=== PATIENT | female | born 1945 | race Caucasian/White ===

== ENCOUNTER 2019-01-20 18:40 | Emergency (ER) | payer OTHER ==
[~2019-01-20] VITALS: Ht 167.6 cm; Wt 77.1 kg
[~2019-01-20 18:40] MED LIST: NAPROXEN 500MG500 MG PO; NORCO 5-325 TA1 EACH PO; VALIUM5 MG PO
[2019-01-20] MEDS ORDERED: HYDROCODON-ACE1 EA11 PO (20:48)
[2019-01-20 20:51] VITALS: BP 167/98
== END 2019-01-20 20:56 | disposition home or self-care (01) ==
LOC: ER 18:40
DX: S52.514A Nondisplaced fracture of right radial styloid process, initial encounter for closed fracture (principal); E03.9 Hypothyroidism, unspecified; F32.9 Major depressive disorder, single episode, unspecified; Z98.51 Tubal ligation status; Z88.0 Allergy status to penicillin; Z88.2 Allergy status to sulfonamides; W18.39XA Other fall on same level, initial encounter; Y93.89 Activity, other specified; Y92.89 Other specified places as the place of occurrence of the external cause; Y99.8 Other external cause status

== ENCOUNTER 2020-04-25 03:30 | Inpatient (IN) | payer OTHER ==
[2020-04-25] VITALS (7 sets, daily range): BP systolic 111–149; BP diastolic 50–85
[~2020-04-25] VITALS: Ht 160 cm; Wt 86.2 kg
[~2020-04-25 03:30] MED LIST changes: +HYDROCODON-ACE1 EA11 PO
[2020-04-25] MEDS ORDERED: TRAMADOL 50 MG50 MG PO (03:39)
[2020-04-25 04:53] LABS: HEMATOCRIT 38.6 % (37.0-47.0); HEMOGLOBIN 12.7 gm/dL (12.0-15.0); MCH 30.1 pg (26.0-34.0); MCHC 32.8 g/dL (28.0-37.0); MCV 91.9 fL (80.0-100.0); RBC 4.2 mil/uL (4.20-5.00); RDW 14.2 % (10.5-14.5); WBC 8.6 thou/uL (4.0-11.0)
[2020-04-25 05:13] LABS: CALCIUM 10.1 mg/dL (8.5-10.1); CREATININE 0.8 mg/dL (0.6-1.0); POTASSIUM 3.3 mmol/L (3.5-5.1)
[2020-04-25 06:39] LABS: URINE BILIRUBIN NEGATIVE (Negative); URINE BLOOD NEGATIVE (Negative); URINE CLARITY CLEAR; URINE COLOR YELLOW; URINE GLUCOSE-RANDOM* NEGATIVE (Negative); URINE KETONES 2+ (Negative); URINE LEUKOCYTES-REFLEX TRACE (Negative); URINE PROTEIN (DIPSTICK) NEGATIVE (Negative); URINE SPECIFIC GRAVITY 1.025 (1.005-1.035); URINE UROBILINOGEN 0.2 E.U./dl (0.2-1.0)
[2020-04-25 06:40] LABS: URINE NITRITE-REFLEX POSITIVE (Negative)
[2020-04-25 06:54] LABS: CASTS None Seen /LPF (None Seen); SQUAMOUS 0-3 Few /LPF (0-3)
[2020-04-25 06:55] LABS: BACTERIA-REFLEX >30 Many /HPF (None Seen); CRYSTALS None Seen /LPF (None Seen); URINE RBC 0-2 Rare /HPF (0-2); URINE WBC-REFLEX 6-15 Few /HPF (0-5)
--- NOTE | 2020-04-25 13:42 | NUR ---
Case opened to follow for dc planning. Pt is &ox4 and indicates that she lives alone in a 3rd story apt. She has 32 steps to get in and out. She has one flight down to her mailbox and laundry area. She has a good friend that lives on that level who can help as needed. She normally drives and manages all of her IADLs, ADLs and gait with no assistive device. She fell last week on the steps and broke her left wrist which is casted. She has back pain then but was able to drive herself to her pcp office, dr. Emani Carroll as well as [facility]. Her back has continued to bother her with increased pain and decline in her functional status. She was dx with L4 comp fx and khypoplasty is planned for this afternoon. She is hoping she will be able to return home to her apt with support from her friend and HH at de. She is open to SNF if recommended by the care team. HH and SNF options for her [employer] plan discussed. She denies preference. HH referral being sent to [facility] for possible dc 1-2 days and SNF referral being sent to [facility] should she not be able to return directly home. Pt is in agreement with Plan A and Plan B pending therapy evals and her post procedure progress. Will follow.
--- NOTE | 2020-04-25 14:56 | NUR ---
FAXED REFERRAL TO [facility] THEY DO NOT ACCEPT PT'S INSURANCE SO THEY CANNOT ACCEPT. FAXED REFERRAL TO [facility] SPOKE WITH INTAKE THEY WILL HAVE TO RUN PT'S INSURANCE THEY ACCEPT SOME [employer] INS. ALSO FAXED REFERRAL TO [facility] FOR SKILLED STAY SPOKE WITH [facility] SHE RECEIVED REFERRAL AND WILL FOLLOW IF PT WILL NEED SKILLED AND SHE WILL ALSO NEED PT/OT NOTES. DP TO FOLLOW.
[2020-04-25] MEDS ORDERED: ALENDRONATE SOD70 MG PO (15:57)
[2020-04-25] MEDS ORDERED: LEVO-T75 MCG PO (15:57)
[2020-04-25] MEDS ORDERED: PROZAC20 M1 PO (15:58)
[2020-04-25] MEDS ORDERED: AMITRIPTYLINE H25 M3 PO (15:58)
[2020-04-25] MEDS ORDERED: SINGULAIR 10 MG10 MG PO (15:59)
[2020-04-25] MEDS ORDERED: NORVASC 2.5 MG2.5 M1 PO (15:59)
[2020-04-25] MEDS ORDERED: ARICEPT10 M1 PO (15:59)
[2020-04-25] MEDS ORDERED: PROTONIX40 M2 PO (16:00)
[2020-04-25] MEDS ORDERED: VITAMIN D325 MC1 PO (16:03)
[2020-04-25] MEDS ORDERED: SUPER THERAVIT1 EACH PO (16:12)
[2020-04-25] MEDS ORDERED: CALTRATE PLUS1 EACH PO (16:12)
--- NOTE | 2020-04-25 20:21 | NUR ---
Admitted patient from ER due to fall. A+Ox4. Admit/discharge nurse Mar did admission history, assessment and history; admission forms signed as well. On MS, not on telemetry; no complains and signs of chest pain, crushing sensation and heaviness. Assisted in ADLs. On nothing per orem- pt informed and aware. On room air. Vital signs stable. With urinary urgency- purewick in place; output measured and recorded accordingly. With SL at R AC- intact and flushing well. Pt went down for Kyphoplasty via stretcher; tolerated procedure well, back to room safely. Bedrest for 2 hours(until 4pm)- pt informed and aware. Patient complained of pain, no PRN pain meds- Dr Vuong paged, informed him re: consult; order for medication obtained- given as prescribed. Med rec done c/o pharmacist- Dr Vuong informed meds ready for review- will look into it- Night RN informed pt's meds to be reviewed by Dr Vuong. With cast on L hand- intact, pt able to move fingers, able to feel tactile stimulation, no swelling and bleeding noted. To continue monitoring patient.
--- NOTE | 2020-04-25 21:08 | NUR ---
PATIENT ADMITTED FROM ER WITH L4 BURST FRACTURE AND RIGHT LEG PARASTHESIA. PATIENT IS NPO FOR PROCEDURE KYPHOPLASTY THIS JAKE RAMIREZ. PATIENT MEG PAIN UNLESS SHE MOVES. PATIENT ALERT AND ORIENTED X 4, SHE STATES SHE CAN BE FORGETFUL. ADMISSION COMPLETED AND REPORT GIVEN TO NATALIE/RN.
--- NOTE | 2020-04-26 06:56 | NUR ---
Pt. rested quietly at intervals during the night when checked on during frequent rounds. She offers no complaints of pain. Bed alarm is on.
[2020-04-26 07:40] VITALS: BP 135/62
[2020-04-26 15:35] VITALS: BP 130/51
--- NOTE | 2020-04-26 16:24 | NUR ---
Assumed pt care this am, cast on the left wrist and hand present prior admission. 1 day post kyphopasty, pain managed with repositioning and medications. Was able to ambulate the halls with physical therapy. POC followed with no signs or distress noted. Diet and medications tolerated well.
[2020-04-26 19:30] VITALS: BP 131/68
--- NOTE | 2020-04-27 04:02 | NUR ---
Pt. rested quietly at short intervals during the night when checked on during frequent rounds. She offers no c/o pain upon assessment. Ambulates to the bathroom with standby assistance and she uses her walker. Bed alarm is on.
[2020-04-27 05:44] LABS: HEMATOCRIT 39.1 % (37.0-47.0); HEMOGLOBIN 12.7 gm/dL (12.0-15.0); MCH 30.3 pg (26.0-34.0); MCHC 32.5 g/dL (28.0-37.0); MCV 93.1 fL (80.0-100.0); RBC 4.2 mil/uL (4.20-5.00); RDW 14.5 % (10.5-14.5); WBC 10.6 thou/uL (4.0-11.0)
[2020-04-27 06:05] LABS: CALCIUM 9.2 mg/dL (8.5-10.1); CREATININE 0.8 mg/dL (0.6-1.0); POTASSIUM 3.6 mmol/L (3.5-5.1)
[2020-04-27 08:04] VITALS: BP 142/78
--- NOTE | 2020-04-27 12:07 | NUR ---
Pt is working with therapy and able to walk in her room and hallway. Attempted stairs today and able to do 5. Pain improved. [facility] for f/u in her apt and pt has a friend who can assist at dc. If the pt is dc ready over the weekend, unit staff to fax dc orders to [facility] at [phone] and call their oncall RN to confirm dc [phone].
[2020-04-27 15:04] VITALS: BP 139/626
[2020-04-27 18:52] VITALS: BP 135/56
--- NOTE | 2020-04-27 22:48 | NUR ---
PT ALERT AND ORIENTED X 4. AMB TO BR WITH STANDBY ASSIST X 1. RAC SALINE LOCK INTACT AND PATENT. CAST TO LEFT WRIST INTACT. FINGERS WARM, PINK, MOBILE. PT DENIES PAIN OR DISCOMFORT. PT AWAKE AT THIS TIME WATCHING TV.
[2020-04-28 07:16] VITALS: BP 163/96
[2020-04-28] MEDS ORDERED: HYDROCODON-ACE1 EAC7 PO (10:02)
[2020-04-28] MEDS ORDERED: CEFUROXIME500 MG PO (10:02)
--- NOTE | 2020-04-28 10:20 | NUR ---
According to the patient, Dr. Freeman stated that the patient would not be discharged until tomorrow or thursday. Dr. Ervin voiced that it would be ok with him if Dr. freeman wanted the patient to stay.
--- NOTE | 2020-04-28 10:21 | NUR ---
Called the answer service for Dr. Freeman, awaiting response.
--- NOTE | 2020-04-28 11:46 | NUR ---
Dr. Freeman, " It is ok with me." when the staff asked, " The patient said that you had told her that she would stay until tomorrow or the day after tomorrow."
--- NOTE | 2020-04-28 11:52 | NUR ---
Dr. Ervin agreed that the patient would not be discharged until tomorrow.
--- NOTE | 2020-04-28 12:11 | NUR ---
Patient will not be discharged today. Will pass it on to the next nurse that Discharge order and discharge summary will be faxed to [phone] (home care) on discharge.
--- NOTE | 2020-04-28 14:02 | NUR ---
Patient voiced of interest in a walker like she is having now.
--- NOTE | 2020-04-28 14:29 | NUR ---
Stretching Press Operator voiced that if the patient is medically stable, she should be discharged. Dr. Freeman paged about 10 minutes ago, no response.
--- NOTE | 2020-04-28 15:15 | NUR ---
Dr. Freeman paged for the second time about 30 minutes ago, no reponse; paged Dr. Lange, awaiting response.
[2020-04-28 15:43] VITALS: BP 124/57
--- NOTE | 2020-04-28 16:18 | NUR ---
Patient is going home with home care, waiting to confirm the fax number: [phone] before faxing.
--- NOTE | 2020-04-28 16:27 | NUR ---
Ms. Huggins from [facility] ( [phone]) claimed that she couldnot find the name of the patient. The staff reported that to Discharge field care manager Bhavna, asked the staff to fax the discharge paper to [phone] right now andMsGordon Huggins claimed that she would text somebody in [facility] about the patient.
--- NOTE | 2020-04-28 18:07 | NUR ---
Ms. Del Valle asked the staff fax discharge paper to [phone], fax done. According to Dr. Ervin, patient will have paper prescription of Hydrocodone-acetaminophen. The prescription of Ceftin has been sent to pharmacy. Patient has signed the discharge document. Patient agreed to leave tomorrow. Will pass this on to the night nurse.
--- NOTE | 2020-04-29 00:41 | NUR ---
PROGRESS PT A/OX4 VSS, UP WITH SBA AND WALKER GAIT STEADY. VOIDING QS REPORTS 3 LOOSE STOOLS FROM [employer] DURING DAY SHIFT. ALSO STATED THE STRESS OF ALMOST BEING DISCHARGED AT THE LAST MINUTE FLARED UP HER IBS. BANDAID TO LUMBAR SPINE INTACT NO REDNESS OR SWELLING NOTED AT SURGICAL SITE.DISCHARGE INSTRUCTIONS AND PRESCRIPTION ON FRONT OF CHART IN NURSE SPECIAL POLICE OFFICER.
[2020-04-29 09:52] VITALS: BP 149/50
--- NOTE | 2020-04-29 10:05 | NUR ---
DISCHARGE PAPERS REVIEWED WITH PATIENT SIGNED AND COPY IN CHART. IV ACSESS DCD. RX GIVEN TO PATIENT ANOTHER FOR ABT CALLED TO PATIENTS PHARMACY. ALL BELONGINGS PACKED AND TO BE SENT HOME WITH PATIENT.
[2020-04-29 11:12] VITALS: BP 149/50
[2020-04-30 13:00] VITALS: BP 149/50
--- NOTE | 2020-04-30 15:53 | NUR ---
WAS NOTIFIED BY [facility] THAT THEY CANNOT ACCEPT PT AFTER ALL DUE TO CAPACITY. FAXED REFERRALL TO [facility] SPOKE WITH CLARITA IN INTAKE THEY CAN ACCEPT PT AND WILL CALL TO ARRANGE VISITS.
== END 2020-04-29 11:00 | disposition home health service (06) | DRG 516 ==
LOC: ER 03:30 → 4W 09:41 → EROBS 09:41 → 4W 10:08
PROVIDERS: Emergency Medicine; Hospitalist; ADMIT Surgery; ATTEND Surgery
PROC: 0QU03JZ Supplement Lumbar Vertebra with Synthetic Substitute, Percutaneous Approach (ICD-10-PCS; principal; 2020-04-25)
PROC: 0QS03ZZ Reposition Lumbar Vertebra, Percutaneous Approach (ICD-10-PCS; principal; 2020-04-25)
DX: S32.041A Stable burst fracture of fourth lumbar vertebra, initial encounter for closed fracture (principal); N39.0 Urinary tract infection, site not specified; I10 Essential (primary) hypertension; F32.9 Major depressive disorder, single episode, unspecified; E03.9 Hypothyroidism, unspecified; R20.2 Paresthesia of skin; W10.8XXA Fall (on) (from) other stairs and steps, initial encounter; B96.1 Klebsiella pneumoniae [K. pneumoniae] as the cause of diseases classified elsewhere; Z79.899 Other long term (current) drug therapy; Z88.0 Allergy status to penicillin; Z88.2 Allergy status to sulfonamides; Y93.89 Activity, other specified; Y92.89 Other specified places as the place of occurrence of the external cause; Y99.8 Other external cause status; Z20.828 Contact with and (suspected) exposure to other viral communicable diseases
CPT/HCPCS: 10040

== ENCOUNTER 2021-02-07 14:56 | Emergency (ER) | payer MEDICARE ==
[~2021-02-07] VITALS: Ht 160 cm; Wt 84.8 kg
--- NOTE | ~2021-02-07 | EMS ---
[place] [address] EMS Patient Care Report Name: BOSTON MANUEL Room #: DEP Lobo#: [id number] Admission: 02/07/21 Attend Phys: Discharge: 02/07/21 Date of : 47 Report #: [id number] THIS REPORT FOR: //name// Report Transmitted: 02/07/2021 17:29 EMS Care Summary [place], [place]/[facility] Incident [id number] @ 02/07/2021 14:31 Incident [address] [place] [address] Patient BOSTON MANUEL Female, 75 Years 1945 Patient Address [address] [place] [address] Patient History Other,Hypertension (HTN), Patient Allergies Penicillin allergy,Sulfa, Chief Complaint fall/facial injury Disposition Transported No Lights/[place] Dispatch Reason Falls Transported To [facility] Narrative pt found seated on sidewalk outside her apt building. pt was taking her trash out and fell, hitting her face on the sidewalk. bystanders called 911. pt unsure why she fell, if she tripped on uneven pavement or was dizzy and fell. she denies LOC. pt has lac to lip and face. pt nose possibly fx, bleeding controlled to all areas. pt has been having frequent [place] [address] EMS Patient Care Report Name: BOSTON MANUEL Room #: DEP [facility].#: [id number] Admission: 02/07/21 Attend Phys: Discharge: 02/07/21 Date of : 47 Report #: [id number] had a brain bleed from her last fall. she denies being on blood thinners currently. she agrees to eval at [facility]. pt helped to cot, transport w/o change. Initial Vitals @14:43P: 88,R: 20,BP: 149/88,Pain: 10/10,GCS: 15,SpO2: 98,Revised Trauma: 12, Assessments @14:37MENTAL:No Abnormalities,SKIN:No Abnormalities,HEENT:Head/Face: Other,LUNG SOUNDS:ABDOMEN:PELVIS//GI:EXTREMITIES:Right Leg: Other,Left Leg: Other,PULSE:NEURO: Impression Injury of Face Procedures @14:39StretcherResponse: Unchanged@14:37ALS AssessmentResponse: Unchanged Timeline 14:29,Call Received 14:29,Dispatch Notified 14:31,Dispatched 14:33,En Route 14:36,On Scene 14:37,At Patient 14:37,ALS Assessment,Response: Unchanged 14:39,Stretcher,Response: Unchanged 14:43,BP: 149/88 M,PULSE: 88,RR: 20 R,SPO2: 98 Ox,ETCO2: ,BG: ,PAIN: 10,GCS: 15, 14:44,Depart Scene 14:50,At Destination 15:13,Call Closed Disclaimer v1.1 Copyright 2020 [employer] This EMS Care Summary contains data elements from the applicable legal record (which may be displayed differently). It is designed to provide pertinent information for the following purposes: continuity of care, clinical quality, and state data reporting. The complete legal record is available to ED staff and administrators of the receiving hospital in [employer] Patient Tracker. All data is provided "as is."
[~2021-02-07 14:56] MED LIST changes: +ALENDRONATE SOD70 MG PO; +AMITRIPTYLINE H25 M3 PO; +ARICEPT10 M1 PO; +CALTRATE PLUS1 EACH PO; +CEFUROXIME500 MG PO; +HYDROCODON-ACE1 EAC7 PO; +LEVO-T75 MCG PO; +NORVASC 2.5 MG2.5 M1 PO; +PROTONIX40 M2 PO; +PROZAC20 M1 PO; +SINGULAIR 10 MG10 MG PO; +SUPER THERAVIT1 EACH PO; +TRAMADOL 50 MG50 MG PO; +VITAMIN D325 MC1 PO
[2021-02-07 16:50] VITALS: BP 122/55
== END 2021-02-07 16:50 | disposition home or self-care (01) ==
LOC: ER 14:56
DX: S00.93XA Contusion of unspecified part of head, initial encounter (principal); S80.02XA Contusion of left knee, initial encounter; S80.01XA Contusion of right knee, initial encounter; E03.9 Hypothyroidism, unspecified; F32.9 Major depressive disorder, single episode, unspecified; Z98.890 Other specified postprocedural states; Z79.891 Long term (current) use of opiate analgesic; Z79.899 Other long term (current) drug therapy; Z88.0 Allergy status to penicillin; Z88.2 Allergy status to sulfonamides; W18.39XA Other fall on same level, initial encounter; Y93.89 Activity, other specified; Y92.89 Other specified places as the place of occurrence of the external cause; Y99.8 Other external cause status